=== PATIENT | male | born 1980 | race Caucasian/White ===

== ENCOUNTER 2016-08-21 03:46 | Emergency (ER) | payer OTHER ==
[~2016-08-21] VITALS: Ht 177.8 cm; Wt 122.3 kg
[~2016-08-21 03:46] MED LIST: ADVIL200 MG PO; FLEXERIL10 MG PO; FLOMAX0.4 MG PO; MOTRIN800 MG PO; NOHOMEMEDS; OXAYDO5 MG PO; PERCOCET 5/31 TABLET PO; ZOFRAN4 MG PO; ZOFRAN8 MG PO
[2016-08-21 05:28] LABS: CHLORIDE 103 mEq/L (99-109); POTASSIUM 4.2 mEq/L (3.7-5.4); SODIUM 136 mEq/L (136-147)
[2016-08-21 05:30] LABS: GLUCOSE 133 mg/dL (70-99)
[2016-08-21 05:31] LABS: ANION GAP 7 MEQ/L (2-14)
[2016-08-21 05:33] LABS: GFR ESTIMATE (CALCULATED) > 59 mL/min/; MCH 32.6 PG (29.0-34.0); MCHC 35.9 G/DL (30.0-36.0); MCV 90.9 FL (86-99); MEAN PLAT.VOLUME 10.6 uM^3 (9.0-12.4); PLATELET COUNT 203 K/uL (156-360); RBC DIS.WIDTH-SD 38.8 % (39-53); RED BLOOD COUNT 4.51 M/uL (4.00-5.50)
[2016-08-21 05:34] LABS: UREA NITROGEN (BUN) 18 mg/dL (9-23)
[2016-08-21] MEDS ORDERED: DILAUDID2 MG PO (07:13)
[2016-08-21 07:30] LABS: ADD MIUA? YES; BILIRUBIN NEGATIVE; BLOOD LARGE; COLOR YELLOW ((YELLOW)); GLUCOSE (STRIP) NEGATIVE; KETONES NEGATIVE; LEUKOCYTES NEGATIVE; NITRITE NEGATIVE; PROTEIN (STRIP) NEGATIVE; SPECIFIC GRAVITY 1.011 (1.000-1.030); UROBILINOGEN 0.2 MG/DL (0.2-1.0)
[2016-08-21 07:56] LABS: BACTERIA NONE SEEN; CASTS NONE SEEN /LPF; CRYSTALS NONE SEEN; EPITHELIAL CELLS RARE; MUCUS NONE SEEN; UCUL ADDED? NO; WHITE BLOOD CELLS NONE SEEN /HPF (0-5)
[2016-08-21 08:18] VITALS: BP 128/70
[2016-08-22] MEDS ORDERED: ZOFRAN ODT4 MG PO (09:51)
[2016-08-22] MEDS ORDERED: NAPROXEN500 MG PO (10:03)
[2016-08-23] MEDS ORDERED: NAPROXEN500 MG PO (14:29)
[2016-08-23] MEDS ORDERED: CIPRO500 MG PO (14:29)
[2016-08-23] MEDS ORDERED: DILAUDID2 MG PO (14:29)
[2016-08-23] MEDS ORDERED: ZOFRAN ODT4 MG PO (14:32)
[2016-08-23] MEDS ORDERED: FLEXERIL10 MG PO (14:32)
== END 2016-08-21 08:19 | disposition home or self-care (01) ==
LOC: EME 03:46
PROVIDERS: Emergency Medicine
DX: N20.1 Calculus of ureter (principal); R11.0 Nausea; R31.9 Hematuria, unspecified; Z87.442 Personal history of urinary calculi
CPT/HCPCS: 80048; 81003; 85027; 99281; 99284; J1170; J2405; J7030

== ENCOUNTER 2016-08-22 07:26 | Emergency (ER) | payer OTHER ==
[~2016-08-22] VITALS: Ht 177.8 cm; Wt 250.0 kg
[~2016-08-22 07:26] MED LIST changes: +DILAUDID2 MG PO
[2016-08-22 07:52] LABS: BASOPHIL COUNT 0.1 K/uL (0-0.1); EOSINOPHIL (%) 2.1 % (0-5); EOSINOPHIL COUNT 0.2 K/uL (0-0.3); HEMATOCRIT 39.1 % (38.0-50.0); IMMATURE GRANULOCYTE (%) 0.3 % (0.0-0.7); IMMATURE GRANULOCYTE COUNT 0.4 K/uL; LYMPHOCYTE COUNT 1.6 K/uL (1.0-2.8); MCH 33.1 PG (29.0-34.0); MCHC 36.6 G/DL (30.0-36.0); MCV 90.5 FL (86-99); MEAN PLAT.VOLUME 10.2 uM^3 (9.0-12.4); MONOCYTE (%) 11.4 % (3-12); MONOCYTE COUNT 1.3 K/uL (0-0.8); NEUTROPHIL (%) 71.9 % (45-76); NEUTROPHIL COUNT 8.3 K/uL (1.8-6.4); PLATELET COUNT 203 K/uL (156-360); RBC DIS.WIDTH-CV 11.8 % (11.8-14.6); RBC DIS.WIDTH-SD 37.9 % (39-53); RED BLOOD COUNT 4.32 M/uL (4.00-5.50); WHITE BLOOD COUNT 11.5 K/uL (4.1-10.2)
[2016-08-22 08:26] LABS: ANION GAP 10 MEQ/L (2-14); CHLORIDE 102 MEQ/L (99-109); GFR ESTIMATE (CALCULATED) > 59 mL/min/; GLUCOSE 155 mg/dL (70-99); POTASSIUM 3.8 MEQ/L (3.7-5.4); SAMPLE HEMOLYSIS CHECK 0; SAMPLE ICTERIC CHECK 0; SAMPLE LIPEMIA CHECK 0; SODIUM 137 MEQ/L (136-147); UREA NITROGEN (BUN) 11 mg/dL (9-23)
[2016-08-22 08:36] LABS: ADD MIUA? YES; BILIRUBIN NEGATIVE; BLOOD SMALL; COLOR YELLOW ((YELLOW)); GLUCOSE (STRIP) NEGATIVE; KETONES NEGATIVE; LEUKOCYTES NEGATIVE; NITRITE NEGATIVE; PROTEIN (STRIP) NEGATIVE; SPECIFIC GRAVITY 1.016 (1.000-1.030)
[2016-08-22 08:58] LABS: BACTERIA RARE; CASTS NONE SEEN /LPF; CRYSTALS NONE SEEN; EPITHELIAL CELLS RARE; MUCUS NONE SEEN; RED BLOOD CELLS 0-5 /HPF (0-5); UCUL ADDED? NO; WHITE BLOOD CELLS RARE /HPF (0-5)
[2016-08-22] MEDS ORDERED: ZOFRAN ODT4 MG PO (09:51)
[2016-08-22 09:56] VITALS: BP 113/72
[2016-08-22] MEDS ORDERED: NAPROXEN500 MG PO (10:03)
[2016-08-23] MEDS ORDERED: DILAUDID2 MG PO (14:29)
[2016-08-23] MEDS ORDERED: NAPROXEN500 MG PO (14:29)
[2016-08-23] MEDS ORDERED: CIPRO500 MG PO (14:29)
[2016-08-23] MEDS ORDERED: FLEXERIL10 MG PO (14:32)
[2016-08-23] MEDS ORDERED: ZOFRAN ODT4 MG PO (14:32)
== END 2016-08-22 10:14 | disposition home or self-care (01) ==
LOC: EME 07:26
PROVIDERS: Physician Assistant
DX: N23 Unspecified renal colic (principal); Z98.890 Other specified postprocedural states; Z87.442 Personal history of urinary calculi
CPT/HCPCS: 74176; 80048; 81003; 85025; 99281; 99284; J1170; J1885

== ENCOUNTER 2016-08-24 05:47 | Day surgery (SDC) | payer OTHER ==
[~2016-08-24] VITALS: Ht 177.8 cm; Wt 121.1 kg
[~2016-08-24 05:47] MED LIST changes: +CIPRO500 MG PO; +NAPROXEN500 MG PO; +ZOFRAN ODT4 MG PO
[2016-08-24 07:02] VITALS: BP 124/74
[2016-08-24 08:00] LABS: METH RESISTANT S AUREUS PCR NEGATIVE (NEGATIVE)
[2016-08-24 08:07] LABS: PROBE CHECK PASS; SPECIMEN PROCESSING CONTROL PASS
[2016-08-24 09:41] VITALS: BP 144/84
[2016-08-24 10:08] VITALS: BP 155/88
== END 2016-08-24 10:14 | disposition home or self-care (01) ==
LOC: SDC 05:47
PROVIDERS: Urology
DX: N20.1 Calculus of ureter (principal)
CPT/HCPCS: 82365 90; 87641; C1876; J0690; J1100; J1170; J2405; J7050